=== PATIENT | male | born 1965 | race Caucasian/White ===

== ENCOUNTER 2017-09-17 11:24 | Emergency (ER) | payer BC ==
[~2017-09-17] VITALS: Ht 162.6 cm; Wt 95.4 kg
[~2017-09-17 11:24] MED LIST: PANTOPRAZOLE SO40 MG
[2017-09-17] MEDS ORDERED: NAPROXEN500 MG PO (14:07)
[2017-09-17 14:27] VITALS: BP 130/88
== END 2017-09-17 14:29 | disposition home or self-care (01) ==
LOC: EME 11:24
DX: S43.409A Unspecified sprain of unspecified shoulder joint, initial encounter (principal); X58.XXXA Exposure to other specified factors, initial encounter
CPT/HCPCS: 99281; 99284; J1885